=== PATIENT | male | born 1990 | race Caucasian/White ===

== ENCOUNTER 2022-06-24 14:17 | Emergency (ER) | payer MEDICARE, MEDICAID ==
[~2022-06-24] VITALS: Ht 177.8 cm; Wt 77.3 kg
[2022-06-24] MEDS ORDERED: IBUPROFEN 600 MG TAB PO ONE (19:30)
[2022-06-24 19:56] VITALS: BP 142/93
[2022-06-24] MEDS ORDERED: TETANUS-DIPTH-ACEL PERTUSSIS 0.5ML SYR Tdap IM ONE (20:00)
== END 2022-06-24 20:49 | disposition home or self-care (01) ==
LOC: ER 14:17
DX: S00.83XA Contusion of other part of head, initial encounter (principal); K03.81 Cracked tooth; W05.1XXA Fall from non-moving nonmotorized scooter, initial encounter; Y93.89 Activity, other specified; Y92.89 Other specified places as the place of occurrence of the external cause; Y99.8 Other external cause status
CPT/HCPCS: 70486; 90471; 90715